=== PATIENT | female | born 1960 | race Caucasian/White ===

== ENCOUNTER 2018-09-04 18:38 | Emergency (ER) | payer OTHER ==
[2018-09-04 18:44] VITALS: BP 107/67; PULSE 90; TEMP 98; BMI 24.1
--- NOTE | 2018-09-04 18:44 | PDOC ---
Rapid Medical Evaluation Medical Evaluation: I have performed a brief in-person evaluation of this patient. The patient presents with a chief complaint of: C/O R wrist and L ankle pain after fall (tripped over pothole); denies head trauma, LOC Pertinent physical exam findings: +swelling and tenderness along L lateral malleolus; +mild TTP along dorsal aspect of R wrist, no deformity of RUE noted I have ordered the following: Tylenol (patient allergic to naproxen), xray The patient will proceed to the ED for further evaluation. 09/04/18 18:39
[2018-09-04] MEDS ORDERED: ACETAMINOPHEN 325 MG TABLET (FP) PO ONE (18:46)
[2018-09-04] MEDS ORDERED: ACETAMINOPHEN 325 MG TABLET (FP) ONE (19:14)
--- NOTE | 2018-09-04 19:32 | PDOC ---
History of Present Illness - General Chief Complaint: Injury Stated Complaint: FALL Time Seen by Provider: 09/04/18 18:40 History Source: Patient Exam Limitations: No Limitations Past History - Travel Traveled outside of the country in the last 30 days: No Close contact w/someone who was outside of country & ill: No - Past Medical History Allergies/Adverse Reactions: Allergies Allergy/AdvReac Type Severity Reaction Status Date / Time latex Allergy Verified 09/04/18 18:44 naproxen Allergy Verified 09/04/18 18:44 shellfish derived Allergy Verified 09/04/18 19:05 Milk Containing Products AdvReac Verified 09/04/18 19:07 Home Medications: Ambulatory Orders Acetaminophen [Tylenol -] 1,000 mg PO Q6H #30 tablet 09/04/18 traMADol HCL [Ultram -] 50 mg PO Q8H #10 tablet MDD 3 09/04/18 COPD: No - Suicide/Smoking/Psychosocial Hx Smoking History: Never smoked Information on smoking cessation initiated: No Hx Alcohol Use: No Drug/Substance Use Hx: No Review of Systems - Review of Systems Able to Perform ROS?: Yes Comments:: 09/04/18 18:56 CONSTITUTIONAL: Absent: fever, chills, diaphoresis, generalized weakness, malaise, loss of appetite HEENT: Absent: rhinorrhea, nasal congestion, throat pain, throat swelling, difficulty swallowing, mouth swelling, ear pain, eye pain, visual Changes MUSCULOSKELETAL: Present: R arm pain, L ankle pain with associated swelling Absent: myalgia SKIN: Absent: rash, itching, pallor NEUROLOGIC: Present: LOC Absent: headache, focal weakness or paresthesias, dizziness, unsteady gait, seizure, mental status changes, bladder or bowel incontinence PSYCHIATRIC: Absent: anxiety, depression, suicidal or homicidal ideation, hallucinations. Is the patient limited Urdu proficient: No *Physical Exam - Vital Signs Last Vital Signs Temp Pulse Resp BP Pulse Ox 98 F 90 17 107/67 96 09/04/18 18:41 09/04/18 18:41 09/04/18 18:41 09/04/18 18:41 09/04/18 18:41 - Physical Exam Comments: 09/04/18 18:57 GENERAL: The patient is awake, alert, and fully oriented, in no acute distress. HEAD: Normal with no signs of trauma. EYES: Pupils equal, round and reactive to light, extraocular movements intact, sclera anicteric, conjunctiva clear. EXTREMITIES: L ankle is swollen over the Lateral malleolus and medial malleolus. Decreased ROM of the L ankle d/t pain. Pt also with R wrist pain over the dorsal 2-4th metacarpals. Pt also with TTP at the base of the R wrist along the radial head. Normal range of motion at all other joints, no edema. NEUROLOGICAL: Normal speech, normal gait. PSYCH: Normal mood, normal affect. SKIN: Warm, Dry, normal turgor, no rashes or lesions noted. Medical Decision Making - Medical Decision Making 09/04/18 22:36 The patient is a 57 y/o F who presents to the ED s/p mechanical trip and fall earlier today. The patient states she was [place] the [place]pped on a pothole. She states she twisted her ankle and flew forward. Admits to LOC. Rates her ankle pain an 8/10. It hurts more when she is walking. Currently denies, fevers, chills, lightheadedness, dizziness, weakness, numbness /weakness/tingling to the affected extremities. A/P: Fall, (+) LOC Pt is neurologically intact with no gross deficits L ankle is erythematous and edematous with pain to the medial and lateral malleolus. R wrist is tender over the base the distal radial head X-rays of wrist and ankle are negative for fracture at this time With pain over radial head/scaphoid, pt placed in wrist splint. She does not want a thumb spica at this time as she states she would rather have crutches to ambulate. Explained to patient that even though the x-ray is negative she could still have a fracture in that area and she should follow up with orthopedics on Friday Head CT is negative for bleed DC home with supportive therapy and ortho follow up I discussed the physical exam findings, ancillary test results and final diagnoses with the patient. I answered all of the patient's questions. The patient was satisfied with the care received and felt comfortable with the discharge plan and treatment plan. The Patient agrees to follow up with the primary care physician/specialist within 24-72 hours. Return precautions were given. *DC/Admit/Observation/Transfer Diagnosis at time of Disposition: Ankle sprain Qualifiers: Encounter type: initial encounter Involved ligament of ankle: unspecified ligament Laterality: left Qualified Code(s): S93.402A - Sprain of unspecified ligament of left ankle, initial encounter - Discharge Dispostion Disposition: HOME Condition at time of disposition: Stable Decision to Admit order: No - Prescriptions Prescriptions: Acetaminophen [Tylenol -] 1,000 mg PO Q6H #30 tablet traMADol HCL [Ultram -] 50 mg PO Q8H #10 tablet MDD 3 - Referrals Referrals: Quentin Castro [Primary Care Provider] - - Patient Instructions Printed Discharge Instructions: DI for Wrist Sprain, DI for Ankle Sprain Additional Instructions: You were evaluated for your fall today You have an ankle and wrist sprain You sprained your ankle. Your x-ray was negative for broken bones. Please keep your ankle elevated while at rest above the level of your heart to reduce swelling. You may take Tylenol 650mg every 4 hours as needed for pain Please ice the area for 20 minute intervals at least 5 times a day to help reduce swelling. Take the Tramadol as needed for break through pain every [address] drink or drive after taking this medication as it may make you sleepy Please wear the Yassine wrap. Weight bear as tolerated Please follow-up with orthopedics on Friday Return to the emergency department if you have worsening pain, or unable to walk , numbness and tingling of the foot, or had any changes in her symptoms. - Post Discharge Activity
[2018-09-04] MEDS ORDERED: traMADol HCL 50 MG TABLET PO ONE (21:39)
[2018-09-04] MEDS ORDERED: traMADol HCL 50 MG TABLET ONE (21:42)
== END 2018-09-04 21:59 | disposition home or self-care (01) ==
LOC: JERFT 18:38
DX: S93.402A Sprain of unspecified ligament of left ankle, initial encounter (principal); W17.89XA Other fall from one level to another, initial encounter; Y93.89 Activity, other specified; Y92.414 Local residential or business street as the place of occurrence of the external cause; Y99.8 Other external cause status
CPT/HCPCS: 70450-TC; 73110-TC-RT-FY; 73610-TC-LT-FY; 73630-TC-LT; 99281-25